=== PATIENT | female | born 1970 | race Caucasian/White ===

== ENCOUNTER → 2016-08-05 | Day surgery (SDC) | payer OTHER ==
[~2016-08-05] MED LIST: ABILIFY PO; DEPAKOTE ER PO; FLEXERIL10 M1 PO; LORTAB; METHADONE; METHADONE PO; MIGRANAL0.5 MG/SPR; OXYCONTIN20 MG PO; PERCOCET 7.5-31 EACH PO; PLAVIX PO; PRILOSEC PO; ZYRTEC PO
--- NOTE | ~2016-08-05 | OR ---
Unit #: [id number] #: [id number] Patient: PENELOPE VALENTINO [id number] [address] [address] [id number] O MR#: [id number] NAME: PENELOPE VALENTINO ROOM: Date of Procedure: 08/05/2016 Admission Date: 08/05/2016 Surgeon: Michael Arrington M.D. : 1970 Attending Physician: Michael Arrington M.D. Referring Physician: Michael Arrington M.D. Primary Care Physician: Nick Woods M.D. OPERATIVE REPORT PROCEDURES PERFORMED Esophagogastroduodenoscopy with biopsy and colonoscopy to cecum. INDICATIONS FOR PROCEDURE A 46-year-old female with history of abdominal pain, nausea, vomiting, also with blood in the stool, and chronic GERD, undergoing evaluation with upper endoscopy and colonoscopy. MEDICATIONS Monitored anesthesia. POSTOPERATIVE FINDINGS 1. Small hiatal hernia. 2. Mild gastritis. Biopsies taken. 3. Normal duodenum and distal duodenum. Biopsies taken looking for celiac disease. 4. Colonoscopy completed to cecum. Prep was good. No polyps, masses, or colitis was seen. 5. Small internal hemorrhoids. PLAN 1. Follow up on the pathology report. 2. Symptomatic treatment. DESCRIPTION OF PROCEDURE The patient was explained of the procedure, risks, and benefits along with risks and benefits of anesthesia. She was brought to the endoscopy room. Propofol anesthesia was given. Bite block was placed. The scope was passed down the mouth into the esophagus, stomach, duodenum, and distal duodenum. Findings as described. Biopsies taken. Gently, I pulled the scope out of the patient's mouth. She tolerated it well. At this time, she was turned around and repositioned for colonoscopy. Rectal exam was done, which was normal. Colonoscope was lubricated, passed up the rectum, advanced under direct vision all the way to the cecum. Cecum was identified by ileocecal valve and appendiceal orifice. At this point, I started to pull the scope out carefully looking. No polyps, masses, or colitis was seen. I retroflexed in the rectum, small hemorrhoids seen. Scope was gently pulled out. She tolerated it well. No major complications were seen. Unit #: [id number] #: [id number] Patient: PENLEOPE VALENTINO Dictated by... Brittany Harris/edith TD: 08/05/2016 22:58 JOB #: [id number] OPERATIVE REPORT Page 1 of 1 X Michael Arrington MD X PROCEDURE OPERATIVE NOTE
== END | disposition home or self-care (01) ==
LOC: COPS 12:04
DX: K44.9 Diaphragmatic hernia without obstruction or gangrene (principal); K29.50 Unspecified chronic gastritis without bleeding; K64.8 Other hemorrhoids; K21.9 Gastro-esophageal reflux disease without esophagitis; K92.1 Melena; G47.30 Sleep apnea, unspecified; Z98.1 Arthrodesis status
CPT/HCPCS: 84703; 88305; 88312; J2250